=== PATIENT | female | born 1955 | race Caucasian/White ===

== ENCOUNTER 2019-02-26 09:53 | Inpatient (IN) | payer OTHER, MEDICARE ==
[~2019-02-26] VITALS: Ht 162.6 cm; Wt 57.6 kg
--- NOTE | ~2019-02-26 | O ---
[facility] [place] [address] OPERATIVE REPORT Name: TERESA MEJIA Room #: 150-2 ADM IN M.R.#: [id number] Admission: 05/07/19 Attend Phys: Chapo Marcelino Discharge: Date of : 55 Report #: [id number] THIS REPORT FOR: //name// CC: Chapo Quiñonez Box DATE OF SERVICE: 05/07/2019 PREOPERATIVE DIAGNOSES: Left shoulder rotator cuff tear arthropathy. POSTOPERATIVE DIAGNOSES: Left shoulder rotator cuff tear arthropathy. PROCEDURE PERFORMED: Left reverse total shoulder arthroplasty. SURGEON: Chapo Sen MD SHIPPING PROCESSOR: Rosalba Dick PA-C. ANESTHESIA: General with preoperative ultrasound-guided interscalene block. FLUIDS: 750 mL crystalloid. ESTIMATED BLOOD LOSS: Approximately 50 mL. DESCRIPTION OF PROCEDURE: After proper identification of the patient and operative site in preoperative holding area, the operative site was signed by myself. Prophylactic antibiotics given. The patient elected to receive an ultrasound-guided block after reviewing the risks, benefits, alternatives and potential complications with anesthesia. After a satisfactory block, the patient was brought back to the operative suite after induction of satisfactory general anesthesia, the patient was carefully positioned in the beach chair position with head of bed elevated approximately 40 degrees. Head and neck were carefully positioned. Right shoulder was sterilely prepped and draped in usual manner and placed in a [employer] spider limb positioning system for the entire procedure. Anterior deltopectoral approach was planned. Ioban drape was also utilized. Skin was incised sharply. Full thickness skin flaps were developed. Deltopectoral interval was identified. Cephalic vein was retracted laterally. There were minimal subdeltoid adhesions. Humeral head was exposed and a massive rotator cuff tear was noted. The approximate the inferior 30% of the subscapularis was intact and tagged and repaired at the end of the procedure. Otherwise, she had complete infra and supraspinatus tendon tears. Oscillating saw was used to flatten the superior aspect of the humeral head. This was reamed up to a size 10 canal and the patient had pronounced retroversion noted that I would estimate at 60-65 degrees. The cutting guide was positioned, but to try more normalize her retroversion, it was able to be cut closer to approximately 30 degrees of retroversion. This was done with oscillating saw [address] [address] OPERATIVE REPORT Name: TERESA MEJIA Room #: 150-2 ADM IN M.R.#: [id number] Admission: 05/07/19 Attend Phys: Chapo Marcelino Discharge: Date of : 55 Report #: [id number] and then those instruments were removed. Protection plate was applied. Small peripheral osteophytes were removed with a rongeur. The glenoid was then exposed. The remaining anterior capsule to the subscapularis was carefully divided bluntly with a right angle clamp. This was then resected. Labrum was resected circumferentially and the inferior capsule was carefully released off the glenoid. Care was taken to protect and identify the axillary nerve throughout the entire procedure. A complete loss of the articular surface superiorly was noted on the glenoid. A guide pin was advanced into the glenoid using the Metaglene guide. Position was verified. Glenoid face was reamed and then the Jose reamer was used to remove any more peripheral tissue. A pituitary rongeur was used to ensure that all peripheral soft tissue was carefully debrided and would not impinge on the glenosphere. Step drill was utilized. The joint was thoroughly irrigated with antibiotic irrigant and the central peg hole was contained. Standard metaglene was carefully impacted into position. It had good stability. Inferior and superior locking screws were placed, tightened and followed by the posterior and anterior screws. These were sequentially tightened. Locking screws were tightened with excellent purchase and these measured 42, 30, 18 mm and 18 mm respectively. At this point, the metaphysis of the proximal humerus was carefully reamed and a 38 centered +2 glenosphere was advanced over the Metaglene. It was reduced. A guidewire was utilized. The tightening screw was counter clockwise rotated until a click was noted. This was felt like it could be seated. This was then tightened and impacted three additional times until the glenosphere was fully seated. Next, a size 1, size 10, size 1 epiphysis, 10 stem trial was assembled, +3 polyethylene provided the best overall fit and stability. Trial implants were removed. A #2 FiberWire was placed through a drill hole in the anterior cortex of the humerus. This area was irrigated with antibiotic irrigant. Stem was assembled on the back table. It was impacted into position, had good rotational stability. Trial polys were again utilized and a +3 polyethylene provided the best overall fit and stability without over tensioning of soft tissues. There appeared to be no propensity to dislocate. Subscapularis was repaired with #2 FiberWire in a modified Truong-Apollo technique. Axillary nerve was intact. Joint was again thoroughly irrigated. Then, 1 gram vancomycin powder was utilized, half at deep, half at more superficial. Deltopectoral interval was closed with 0 Vicryl, 2-0 Vicryl for the subcutaneous tissues, final skin closure was with running Monocryl followed by Dermabond. Sterile dressing was applied. She was in the operative suite at the time of dictation. She will be immobilized in a sling for 4 weeks postoperatively. Qualified accountant assistant utilized throughout the entire procedure to aid in patient limb positioning, visualization and retraction of soft tissues, instrument passage, closure and sling application. By: 1215 [id number] Chapo Sen MD /nt
[~2019-02-26 09:53] MED LIST: ACTEMRA80 MG/4 ML IV; CELEXA40 MG PO; CENTRUM TABLET1 TAB PO; COZAAR 50 MG TA50 M1 PO; ESTRACE1 MG PO; FISHOIL PO; HYDROCODONE-AP1 EA11 PO; HYDROXYCHLOROQ200 M1 PO; IBUPROFEN 600600 M1 PO; LIPITOR 20 MG T20 M1 PO; METHOTREXATE 22.5 MG PO; MOBIC7.5 MG PO; MULTIVITAMINS1 EAC7 PO; PREDNISONE 5 MG5 M1 PO; SKELAXIN 800 M800 M1 PO; VICODIN 5-5001 EACH PO; VICODIN ES TAB1 EACH PO; VITAMIN D50000 UNIT PO; WELLBUTRIN SR150 MG PO; [UNRECOGNIZED DRUG - OTHER] IVM
[2019-04-14] MEDS ORDERED: LIPITOR40 MG PO (10:37)
[2019-04-14] MEDS ORDERED: BEE PROPOLIS PO (10:41)
[2019-04-14] MEDS ORDERED: TURMERIC500 M2 PO (10:42)
[2019-04-14] MEDS ORDERED: ZYRTEC10 M5 PO (10:42)
[2019-04-14] MEDS ORDERED: COLLAGEN HYDROLY1 GM PO (10:43)
[2019-04-21 13:30] LABS: URINE BILIRUBIN NEGATIVE (Negative); URINE BLOOD NEGATIVE (Negative); URINE CLARITY CLEAR; URINE COLOR YELLOW; URINE GLUCOSE-RANDOM* NEGATIVE (Negative); URINE KETONES NEGATIVE (Negative); URINE LEUKOCYTES-REFLEX NEGATIVE (Negative); URINE NITRITE-REFLEX NEGATIVE (Negative); URINE PROTEIN (DIPSTICK) NEGATIVE (Negative); URINE SPECIFIC GRAVITY 1.015 (1.005-1.035); URINE UROBILINOGEN 0.2 E.U./dl (0.2-1.0)
[2019-04-21 13:32] LABS: HEMATOCRIT 38.8 % (37.0-47.0); MCH 35.1 pg (26.0-34.0); MCHC 33.5 g/dL (28.0-37.0); MCV 104.6 fL (80.0-100.0); RBC 3.71 mil/uL (4.20-5.00); RDW 15.4 % (10.5-14.5); WBC 6.2 thou/uL (4.0-11.0)
[2019-04-21 13:39] LABS: CALCIUM 10.2 mg/dL (8.5-10.1); CREATININE 0.8 mg/dL (0.6-1.0); POTASSIUM 4.9 mmol/L (3.5-5.1)
[2019-04-21 13:42] LABS: PROTIME 9.9 Seconds (9.3-11.4)
--- NOTE | 2019-04-22 09:58 | EKG ---
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
[2019-05-07 09:27] VITALS: BP 131/90
--- NOTE | 2019-05-07 18:28 | NUR ---
64 YO FEMALE ADMITTED FROM PACU TO 441. A&OX4. IV INFUSING FLUIDS IN L FA. AQUACELL INTACT WITH POLAR PACK AND SHOULDER BRACE. TOLERATING PO PAIN MED WELL. ORIENTED PT TO ROOM/ CALL LIGHT.
[2019-05-07 19:28] VITALS: BP 111/67
[2019-05-08] VITALS (7 sets, daily range): BP systolic 123–128; BP diastolic 59–66
--- NOTE | 2019-05-08 03:51 | NUR ---
ASSESSED AT START OF SHIFT WITH C/O PAIN. MEDS GIVEN. LOZENGES AND SODA ALSO GIVEN FOR DRY SORE THROAT. POLAR PACK IN PLACE AND SHOULDER BRACE INTACT. PT UP WITH ASSISTX1 TO THE TOILET. IV INTACT AND FLUIDS INFUSING. WILL CONT WITH POC TILL EOS.
[2019-05-08 05:35] LABS: HEMATOCRIT 33.6 % (37.0-47.0); HEMOGLOBIN 11.4 gm/dL (12.0-15.0)
[2019-05-08 05:49] LABS: POTASSIUM 3.9 mmol/L (3.5-5.1)
--- NOTE | 2019-05-08 07:32 | NUR ---
ASSUMED CARE PT RESTING IN BED. PT ALERT XS 4, NO PAIN AT PRESENT.
--- NOTE | 2019-05-08 13:52 | NUR ---
ONE TIME ORDER FOR THIS AM MED GIVE 2 OXYCODONE AT 0855. COMPUTER SAYS 1 EVERY 4 HOURS 2 EVERY 6 BUT ORDER S/B 1-2 EVERY 4-6
--- NOTE | 2019-05-08 14:09 | NUR ---
INITIAL ASSESSMENT: Pt evaluated for d/c planning needs. Reviewed chart and spoke with nurse and pt. Pt is alert and oriented. Pt lives in house prior to admission and was independent with ADL's prior to admission to the hospital. Pt plans on returning home. Spoke with orthopedic HARNESS MENDER who wrote d/c home today with self care. No d/c needs indicated at this time.
== END 2019-05-08 15:50 | disposition home or self-care (01) | DRG 483 ==
LOC: PRE 09:53 → TBA 05-07 08:38 → 4S 05-07 08:38 → PRE 05-07 11:17 → 4S 05-07 15:47 → PRE 05-07 16:27 → 4S 05-08 15:50
PROVIDERS: Physician Assistant Surgical; ADMIT Orthopaedic Surgery Sports Medicine
PROC: 0RRK00Z Replacement of Left Shoulder Joint with Reverse Ball and Socket Synthetic Substitute, Open Approach (ICD-10-PCS; principal; 2019-05-07)
DX: M75.102 Unspecified rotator cuff tear or rupture of left shoulder, not specified as traumatic (principal); Z96.651 Presence of right artificial knee joint; M06.9 Rheumatoid arthritis, unspecified; F32.9 Major depressive disorder, single episode, unspecified; M47.812 Spondylosis without myelopathy or radiculopathy, cervical region; M75.41 Impingement syndrome of right shoulder; M19.011 Primary osteoarthritis, right shoulder; M47.817 Spondylosis without myelopathy or radiculopathy, lumbosacral region; Z90.710 Acquired absence of both cervix and uterus; Z82.61 Family history of arthritis; Z88.0 Allergy status to penicillin; Z79.899 Other long term (current) drug therapy
CPT/HCPCS: 10102; 50010; 50101; 50172; 50386; 50417; 50697; 50733; 50935; 51320; 52138; 52256; 53000; 53078; 54118; 55430; 56524; 56525; 56526; 56530; 57095; 57103; 62110; 62900; 65060; 70005